=== PATIENT | male | born 1950 | race Caucasian/White ===

== ENCOUNTER → 2022-08-13 13:03 | Outpatient (BNVA) | payer MEDICARE, SELFPAY | PROVIDERS: PCP Internal Medicine Medical Oncology; Visit Provider Physician Assistant | DX: M54.40 Lumbago with sciatica, unspecified side (principal) | CPT/HCPCS: 99212 ==

== ENCOUNTER 2022-10-04 10:34 | Outpatient (REF) | payer MEDICARE, SELFPAY ==
--- NOTE | ~2022-10-04 | MR_ITS ---
EXAMINATION: MR LUMBAR SPINE WITHOUT AND WITH CONTRAST CLINICAL INFORMATION: 72-year-old with lumbago, with sciatica, unspecified laterality. COMPARISON: None available. TECHNIQUE: Multiplanar multisequence MR imaging of the lumbar spine was done prior to and following the administration of 7 mL of Gadavist. FINDINGS: Coronal Alignment: Mild lower lumbar levocurvature, convex to the left at L3-L4 with slight mhgr-wc-fvsei lateral listhesis at L2-L3. Sagittal Alignment: 2 mm of grade 1 degenerative spondylolisthesis at L4-L5 without spondylolysis. 2-3 mm of retrolisthesis asymmetric to the right at L2-L3. Lumbosacral Junction: Normal. There are 5 lnz-tmn-gniwwkx lumbar-type vertebral bodies. Vertebral Bodies: Slight chronic loss of height asymmetric to the left at L2. Otherwise, vertebral body heights are well maintained. Disc Spaces and Endplates: Ennnyqsh-bu-cfncmq disc space height loss asymmetric to the left at L5-S1 with intradiscal degenerative signal changes and mild spondylosis. Moderate disc space height loss with disc desiccation, Schmorl's nodes and spondylosis at L2-L3 and minor degrees of spondylosis and disc desiccation at L1-L2, L3-L4 and L4-L5. Spinal Canal: No abnormal developmental findings. Bone Marrow: Type I degenerative marrow signal changes seen along the endplates at L5-S1 with associated marrow enhancement and to a lesser degree at L2-L3, with type II marrow signal changes at L2-L3 and L5-S1. There is partially imaged marrow signal alteration in the sacral ala bilaterally which could be artifactual; however, if clinically warranted, MRI of the sacrum without and with contrast may be of additional value to further assess this to exclude insufficiency fracture or other abnormality. There is also somewhat heterogeneous marrow signal intensity seen in the background of diffusely which is nonspecific. Conus Medullaris: Terminates at T12. Morphology and signal is normal. No abnormal enhancement. Intradural Nerve Roots: Within normal limits. No abnormal intradural enhancement. L5-S1: Concentric disc bulging is noted with superimposed broad-based uinoeus-zy-qsyl subarticular extruded disc herniation with slight caudal migration in the subarticular zone impinging on the left S1 nerve root. There is slight flattening of the ventral thecal sac centrally and asymmetric to the left associated with this. There is mild facet arthrosis on the left with mild left subarticular recess narrowing without significant central canal stenosis. There is vnxzncvk-hn-irecto left-sided neural foraminal stenosis with impingement on the exiting left L5 nerve root. L4-L5: Slight unroofing of the posterior disc margin is noted consistent with mild grade 1 degenerative spondylolisthesis, with superimposed concentric disc bulging, with posterolateral annular fissuring on the left. There is flattening of the ventral dural sac with a prominent dorsal epidural fat pad and there is moderate bilateral facet arthropathy, with bilateral facet joint effusions which are noted to enhance with some periarticular edema and enhancement suggesting inflammatory changes at both facet joints. There is mild central spinal canal stenosis and there is qqhajnha-bp-oumduq right and mild left subarticular recess stenosis with encroachment on the traversing right L5 nerve root. Minor foraminal narrowing is noted on the right without exiting neural impingement. L3-L4: There is diffuse disc bulging with mild flattening of the ventral dural sac with a prominent dorsal fat pad. There is yigo-wm-tcckcpee bilateral facet arthropathy, right more than left, with a right-sided facet joint effusion with associated intraventricular and periarticular enhancement bilaterally consistent with facet joint inflammatory changes. There is borderline central canal narrowing, with moderate right and mild left-sided subarticular recess stenosis and cmnm-vk-ahornbdb right-sided neural foraminal stenosis without definite neural impingement. L2-L3: Slight retrolisthesis asymmetric to the right with posterolateral disc osteophyte complex and bilateral foraminal/extraforaminal disc protrusions with left posterolateral annular fissuring. Mild flattening of the ventral dural sac is noted with mild facet arthropathy bilaterally. No significant central spinal canal stenosis. There is crowding of the right subarticular zone with encroachment on the intradural portion of the traversing right L3 nerve root and mild bilateral neural foraminal stenosis. L1-L2: Minor annular bulging with trace central annular fissuring with slight flattening of the ventral dural sac with no significant canal stenosis. There is minor facet arthropathy on the right without significant neural foraminal stenosis. T12-L1: Small central extruded disc herniation with caudal migration down to the level of midbody L1 with slight indentation of the ventral thecal sac without canal stenosis. No significant facet arthrosis or neural foraminal stenosis. Paravertebral and Included Extraspinal Soft Tissues: Small foci of susceptibility artifact are noted in the soft tissues posterior to the L4-L5 level of indeterminate significance. There is some associated faintly enhancing soft tissue stranding in this region along the posterior aspect of the L4-L5 interspinous ligament. Correlate with any previous surgical procedures. MR/MR lumbar spine wo/w con IMPRESSION: 1. Mild lower lumbar levoscoliosis, with mild grade 1 degenerative spondylolisthesis at L4-L5 and mild retrolisthesis at L2-L3. 2. Multilevel DDD and spondylosis, with multilevel disc bulging, disc osteophyte complexes and disc herniations as described above with left subarticular extruded disc herniation at L5-S1 impinging on the left S1 nerve root. 3. Multilevel bilateral facet arthropathy, with inflammatory changes at both L4-L5 and L3-L4 with facet joint effusions and enhancement at these levels suggesting active inflammatory changes. 4. Mild central spinal canal stenosis at L4-L5 and multilevel subarticular recess stenosis, most apparent on the right at L4-L5 and L3-L4 and on the right at L2-L3. 5. Multilevel bilateral neural foraminal stenosis, most apparent on the left at L5-S1 with left L5 nerve root impingement. 6. Partially imaged marrow signal alteration in the sacral ala bilaterally which could be artifactual; however, if clinically warranted, MRI of the sacrum without and with contrast may be of additional value to further assess this for possible sacral insufficiency fracture or other abnormality. 7. Susceptibility artifact with soft tissue signal changes posterior to the L4-L5 level. Correlate for any history of recent surgical procedures at this level to account for this.
== END 2022-10-04 10:35 | disposition home or self-care (01) ==
LOC: HO.MRI 10:34
PROVIDERS: PCP Internal Medicine; Visit Provider Physician Assistant
DX: M54.40 Lumbago with sciatica, unspecified side (principal)
CPT/HCPCS: 72158; A9585

== ENCOUNTER 2022-12-10 14:08 | Outpatient (AMB) | payer MEDICARE, SELFPAY ==
--- NOTE | 2022-12-10 14:19 | A.SPINEOV_ITS ---
Intake Intake Visit Reasons: follow up Intake Note: Mr. Crowley is here for a follow up w/new MRI/brought disc. Skein Inspector Required: No Assessment & Plan Assessment & Plan (1) Back pain of lumbar region with sciatica: Code(s): M54.40 - Lumbago with sciatica, unspecified side Plan Mr. Crowley is here for F/U regarding our last visit where he expressed concerns regarding a chronic problem with R hand / arm, and previously reported sub- optimal relief s/p his left L5 foraminotomy in February of last year. In regards to his R arm weakness, we had discussed having him bring in his most recent Cervical MRI to review for a possible etiology of his symptoms. We reviewed his MRI from 2019 and noted moderate right-sided foraminal stenosis at C7, with rather diffuse mild/moderate cervical spinal stenosis. He reported that the neurosurgeon who we spoke to after this cervical MRI in 2019 recommended he have cervical spinal surgery but does not remember the name the surgery. In regards to his L leg pain that radiates alongside his left back when walking, we reviewed the most recent MRI which showed no significant changes from his previous MRI. Thankfully the patient reports that his left-sided radicular symptoms have completely subsided, and stated that he wants to thank Dr. Martínez personally for the complete relief of his low back and leg symptoms. He was initially concerned after his last visit but states over the last few months his symptoms have subsided. To be clear today the patient states that is most predominant symptom is his right arm and hand weakness. On physical exam the patient has noted atrophy in his right hand, particularly in his interossei muscles, and noted atrophy of the right arm compared to the left arm. He has 4/5 strength in his right arm/hand and 5/5 strength in his left arm/hand. (-) Alvarez's bilaterally. After reviewing this patient case with SARAH David examining the patient alongside him we decided that it would be best for him to monitor his right hand/arm symptoms over the course the next 6 months and have the patient reach back out to us and let us know how his symptoms progress. If his symptoms significantly worsen we would like to reorder an MRI of the cervical spine and can discuss potential surgical interventions after the MRI is complete. Total amount of time spent in this visit was 45 minutes in discussion of symptoms, MRI imaging results and subsequent plan of care. This plan was discussed with SARAH David and Dr. Martínez. Alec Martínez MD,PhD [facility] Coding Level of Care Code Tele Est Pt Level 4 (23474) Diagnoses Back pain of lumbar region with sciatica M54.40
== END 2022-12-10 15:34 | disposition home or self-care (01) ==
PROVIDERS: PCP Internal Medicine; Visit Provider Physician Assistant
DX: M54.40 Lumbago with sciatica, unspecified side (principal)
CPT/HCPCS: 99215

== ENCOUNTER → 2022-12-10 14:08 | Outpatient (BNVA) | payer MEDICARE, SELFPAY | PROVIDERS: PCP Internal Medicine; Visit Provider Physician Assistant | DX: M54.40 Lumbago with sciatica, unspecified side (principal) | CPT/HCPCS: 99212 ==

== ENCOUNTER → 2023-05-03 14:13 | Outpatient (BNV) | payer MEDICARE, SELFPAY | PROVIDERS: Visit Provider Internal Medicine Cardiovascular Disease | DX: R00.1 Bradycardia, unspecified (principal); R94.31 Abnormal electrocardiogram [ECG] [EKG] | CPT/HCPCS: 93010 ==

== ENCOUNTER 2023-05-05 09:26 | Day surgery (SDC) | payer MEDICARE, SELFPAY ==
--- NOTE | 2023-05-03 | ECG_ITS ---
Test Reason : preop Blood Pressure : / mmHG Vent. Rate : 057 BPM Atrial Rate : 057 BPM P-R Int : 150 ms QRS Dur : 086 ms QT Int : 416 ms P-R-T Axes : 079 063 057 degrees QTc Int : 404 ms Sinus bradycardia Possible Left atrial enlargement Borderline ECG No previous ECGs available Referred By: Shiloh Kumar Electronically Signed By:DOTTY MCKEON MD
[2023-05-03 13:29] VITALS: BP 129/91; PULSE 56; RESP 16; O2SAT 98; BMI 23.8
--- NOTE | 2023-05-03 13:55 | HO.ANESPROP2 ---
Documented by User: Shiloh Kumar NP 05/04/23 08:26 HPI - Anesthesia Eval Consult details Narrative: 72yo M for C6-7 Ant Cerv Discectomy w/ fusion No recent illness No CP/SOB with walking, grocery shopping Benign tremor. Propranolol BID GERD. Diet controlled. Occassional PMFSH Active Problems Active Problems: All Active Problems (Updated 05/03/23 @ 13:25 by Hannah Bates, [place]) Back pain of lumbar region with sciatica (Acute) Past Medical History Medical History (Updated 05/05/23 @ 12:05 by SARAH Voss) Prostate cancer Low back pain GERD (gastroesophageal reflux disease) Tremor Numbness and tingling in right hand ADHD Elevated cholesterol HTN (hypertension) Family History Family history of problems with anesthesia: No Surgical History Surgical History Hx of decompression of ulnar nerve Hx of arthroscopy of right knee Hx of tonsillectomy Hx of colonoscopy History of carpal tunnel release Hx of decompressive lumbar laminectomy History of Problems with Anesthesia: No Social History Social History Are you a primary youth care professional to a significant other at home: No Do you presently have visiting nurse or other home services: No Comment: aware of trip hazard Patient Tobacco Use Status: Never used Tobacco Use of substances other than those prescribed or required for medical reasons: Yes Substance Use Frequency: Occasionally Have you been hit, kicked, punched, or otherwise hurt by someone within the past year? If so, by whom?: No Are you DNR?: No Advance Directives: No Advance Directives Information Provided: Yes Advance Directives on File: No Recently lost weight without trying: No Nutrition Risks: No Nutritional Risk Poor oral hygiene: No Meds Allergies Allergy/AdvReac Type Severity Reaction Status Date / Time No Known Allergies Allergy Verified 05/05/23 09:44 Home Medications Medication Instructions Recorded Confirmed Last Taken Type citalopram 20 mg tablet 20 mg PO DAILY 05/02/23 05/02/23 05/05/23 History propranolol 20 mg tablet 60 mg PO BID 05/02/23 05/02/23 Unknown History rosuvastatin 40 mg tablet 40 mg PO DAILY 05/02/23 05/02/23 Unknown History tamsulosin 0.4 mg capsule 0.4 mg PO DAILY 05/02/23 05/02/23 Unknown History trazodone 100 mg tablet 100 mg PO BEDTIME 05/02/23 05/02/23 Unknown History docusate sodium 100 mg capsule 100 mg PO DAILY 05/03/23 05/03/23 Unknown History methylphenidate HCl 30 mg biphasic 30 mg PO QAM 05/03/23 05/03/23 Unknown History 30-70 capsule,extended release Exam Height,Weight and Vital Signs: Height 5 ft 7 in Weight 68.946 kg Last Vital Signs Pulse 56 05/03/23 13:29 Resp 16 05/03/23 13:29 BP 129/91 H 05/03/23 13:29 Pulse Ox 98 05/03/23 13:29 O2 Del Method Room Air 05/03/23 13:29 Pertinent Lab Results Pertinent Lab Results: Lab Results 05/03/23 Range/Units 14:28 WBC 6.6 (4.8-10.8) X10*3/uL RBC 5.30 (4.60-5.80) X10*6/uL Hgb 15.5 (14.0-18.0) g/dl Hct 47.8 (42.0-52.0) % MCV 90.2 (80.0-98.0) fL MCH 29.2 (27.0-33.0) pg MCHC 32.4 (31.0-36.0) g/dl RDW 13.4 (11.0-16.0) % Plt Count 192 (160-400) X10*3/uL MPV 9.6 (9.4-12.4) fL Absolute Nucleated RBC 0.000 (0.0-0.012) X10*3/uL Nucleated RBC % (auto) 0.0 (0.0-0.2) /100WBC Sodium 141 (135-145) mmol/L Potassium 4.5 (3.3-5.1) mmol/L Chloride 105 (96-108) mmol/L Carbon Dioxide 30 H (22-29) mmol/L Anion Gap 11 L (12-20) BUN 18 H (9-16) mg/dL Creatinine 1.00 (0.5-1.4) mg/dL Estim Creat Clear Calc 62.4 Estimated GFR > 60 Random Glucose 94 (60-115) mg/dL Calcium 9.5 (8.4-10.2) mg/dL Narrative Narrative: EKG 04/2023 Vent. Rate : 057 BPM Atrial Rate : 057 BPM P-R Int : 150 ms QRS Dur : 086 ms QT Int : 416 ms P-R-T Axes : 079 063 057 degrees QTc Int : 404 ms Sinus bradycardia Possible Left atrial enlargement Borderline ECG No previous ECGs available Airway Mallampati Class: II TM Dist: >3cm Neck ROM: Limited Loose/Missing/Broken Teeth: Yes (Crowned molars) Heart: RRR Lungs: CTAB Assessment and Plan Assessment Anesthesia Assessment: Anesthesia Plan Discussed and PAT Visit Final Anesthetic Review Family History of Problems with Anesthesia: No History of Problems with Anesthesia: No Documented by User: Alexi Moore MD 05/05/23 14:02 [facility] Past Medical History Medical History (Updated 05/05/23 @ 12:05 by SARAH Voss) Prostate cancer Low back pain GERD (gastroesophageal reflux disease) Tremor Numbness and tingling in right hand ADHD Elevated cholesterol HTN (hypertension) Surgical History Surgical History Hx of decompression of ulnar nerve Hx of arthroscopy of right knee Hx of tonsillectomy Hx of colonoscopy History of carpal tunnel release Hx of decompressive lumbar laminectomy Social History Social History Are you a primary youth care professional to a significant other at home: No Do you presently have visiting nurse or other home services: No Comment: aware of trip hazard Patient Tobacco Use Status: Never used Tobacco Use of substances other than those prescribed or required for medical reasons: Yes Substance Use Frequency: Occasionally Have you been hit, kicked, punched, or otherwise hurt by someone within the past year? If so, by whom?: No Are you DNR?: No Advance Directives: No Advance Directives Information Provided: Yes Advance Directives on File: No Recently lost weight without trying: No Nutrition Risks: No Nutritional Risk Poor oral hygiene: No Meds Allergies Allergy/AdvReac Type Severity Reaction Status Date / Time No Known Allergies Allergy Verified 05/05/23 09:44 Home Medications Medication Instructions Recorded Confirmed Last Taken Type citalopram 20 mg tablet 20 mg PO DAILY 05/02/23 05/02/23 05/05/23 History propranolol 20 mg tablet 60 mg PO BID 05/02/23 05/02/23 Unknown History rosuvastatin 40 mg tablet 40 mg PO DAILY 05/02/23 05/02/23 Unknown History tamsulosin 0.4 mg capsule 0.4 mg PO DAILY 05/02/23 05/02/23 Unknown History trazodone 100 mg tablet 100 mg PO BEDTIME 05/02/23 05/02/23 Unknown History docusate sodium 100 mg capsule 100 mg PO DAILY 05/03/23 05/03/23 Unknown History methylphenidate HCl 30 mg biphasic 30 mg PO QAM 05/03/23 05/03/23 Unknown History 30-70 capsule,extended release Assessment and Plan Final Anesthetic Review NPO: Yes ASA Class: III Final Preanesthetic Review: No Changes in Pt Med Stat, Meds/Allgs Chart Reviewed, Consent Obtained/Reviewed and Anes Risks/Benef Reviewed Patient Risk: Intermediate Procedure Risk: Intermediate Anesthetic Plan Anesthetic Plan: GA Disposition: Standard PACU
[2023-05-03 15:26] LABS: Hematocrit 47.8 % (42.0-52.0); Hemoglobin 15.5 g/dl (14.0-18.0); Mean Corpuscular HGB Conc 32.4 g/dl (31.0-36.0); Mean Corpuscular Hemoglobin 29.2 pg (27.0-33.0); Mean Corpuscular Volume 90.2 fL (80.0-98.0); Mean Platelet Volume 9.6 fL (9.4-12.4); Platelet Count 192 X10*3/uL (160-400); Red Cell Distribution Width 13.4 % (11.0-16.0); White Blood Count 6.6 X10*3/uL (4.8-10.8)
[2023-05-03 15:57] LABS: Anion Gap 11 (12-20); Blood Urea Nitrogen 18 mg/dL (9-16); Calcium 9.5 mg/dL (8.4-10.2); Carbon Dioxide 30 mmol/L (22-29); Chloride 105 mmol/L (96-108); Creatinine Clr Calc Pharmacy 62.4; Estimated Glomerular Filt Rate > 60; Glucose Random 94 mg/dL (60-115); Potassium 4.5 mmol/L (3.3-5.1); Sodium 141 mmol/L (135-145)
[2023-05-05] VITALS (14 sets, daily range): BP systolic 117–155; BP diastolic 72–91; PULSE 66–75; RESP 12–18; TEMP 36.3–36.4; O2SAT 95–100; BMI 24.1
--- NOTE | ~2023-05-05 | FL_ITS ---
EXAMINATION: XR FLUOROSCOPY WITH IMAGES CLINICAL INFORMATION: ACDF COMPARISON: None available. TECHNIQUE: Fluoroscopy Supervised By: Dr. Luis Armando Martínez Fluoroscopy Time: Reported as 0 minutes by imaging equipment. Cumulative Dose: 0.803 mGy. DAP: 0.0109 Gycm2. Images: 2. FINDINGS: Fluoroscopic imaging was utilized for procedure. 2 images are saved and available for review. These show presence of anterior cervical fusion hardware at C6-C7 and overlying drains. FL/FL guidance in OR IMPRESSION: Imaging guidance for procedure. For further detail regarding findings and procedure please refer to the operative report.
--- NOTE | 2023-05-05 09:28 | MHC.SHP ---
Pre-Procedural Eval Section A Date of Service: 05/05/23 The patient is an INPATIENT: No Changes since office visit: No Cold of Flu in the past 2 weeks, No New Medical Problems, No Changes in Medication and No Patient answered all questions The History & Physical has been completed within 30 days and I have reviewed it.: No Section B Chief Complaint: Spinal stenosis, cervical region Allergies: Allergies Allergy/AdvReac Type Severity Reaction Status Date / Time No Known Allergies Allergy Verified 04/27/23 15:06 Review of Systems Sugical H&P ROS: Negative: Constitution, Cardiovascular, Respiratory, Neurological, Psychiatric, Hem-Onc, Allergic/Immunologic, Gastrointestinal, Genitourinary, Musculoskeletal, Integumentary, Endocrine and Eyes/Ears/Nose/Throat Exam Surgical H&P Exam: Not Evaluated: HEENT, Not Evaluated: Heart, Not Evaluated: Lungs, Not Evaluated: Extremities, Not Evaluated: Abdomen, Not Evaluated: Skin and Not Evaluated: Neurological Plan Diagnosis/Plan: Unchanged C6-7 Anterior Cervical Diskectomy and fusion Time Spent With Patient Time: Total time managing care of this patient today __10__ minutes.
[2023-05-05] MEDS: Lactated Ringers 1,000 ML 100 ML IVCONT (09:50)
[2023-05-05] MEDS: methocarbamoL 750 MG TABLET PO (10:14)
[2023-05-05] MEDS: Gabapentin 300 MG CAPSULE PO (10:14)
--- NOTE | 2023-05-05 11:55 | W.PM.OPN ---
Operative Note Operative Note Date of Service: 05/05/23 Narrative: Preoperative Diagnosis: Cervical myelopathy due to spinal cord compression C6-7 Procedure: C6-C7 Anterior discectomy, arthrodesis and implantation cage ; C6-C7 anterior instrumentation ; local autograft; microscope Informed Consent was obtained for this operation. I have explained the nature, purpose and benefits of the operation. I have discussed the risks and benefit of the operation including possible complications or adverse events with patient/family. Alternative(s) were discussed with the patient with their relative benefits and risks as well as the consequences of not accepting the operation were included in obtaining consent. Surgeon: ISAURA RODRIGUES MD, PHD Procedure Assisted By: ronaldo King Description of Procedure: This 72-year-old male presents with progressive right hand clumsiness and weakness. New MRI shows progressive C6-7 spinal cord compression with myelomalacia and a stable right C8 foraminal stenosis. Was offered an anterior diskectomy fusion C6-7 to decompress the spinal cord. The procedure complications were explained. The patient was consented. The patient was brought to the operating room and endotracheally intubated. The patient was put in supine position with slight extension of the neck. Prep and drape was done followed by timeout. A mid cervical incision was made followed by opening of the platysma. The prevertebral fascia was reached following the natural planes while the physician assistant professor surgical technology provided manual retraction. The prevertebral fascia was opened to expose the disc space. A spinal needle was placed in the disk space to confirm the correct level with xray. The longus colli muscles were released bilaterally and a self retaining retractor was inserted. Two Burwell pins were placed in the C6 and C7 vertebral bodies and distraction was give over the interspace. The discectomy was completed toward the posterior annulus of the disc. The microscope was brought in. The remainder of the discectomy was completed. The posterior ligament was opened and resected to expose the underlying dura. Severe spinal cord compression was present eccentric from the right side into the foramen. The large osteophytes were resected from the body of C6 and C7 to decompress the spinal cord and saved for autograft. Bilateral foraminotomies were done. The endplates were prepared after which a 6 mm cage filled with autograft was inserted into the disc space. A separate attached plate was locked down with 2 x 14 mm screws as anterior instrumentation. Final x-rays in AP and lateral projection showed a satisfactory position of the implant. The physician assistant professor surgical technology took over. The Burwell pin was removed. Hemostasis was done. He closed the incision in 2 layers with a 3-0 Vicryl. Steri-Strips used to approximate incision. An OpSite with Tegaderm was used to cover the incision. All sponge and needle counts were correct. Patient was extubated and transported in stable is to recovery room. Anesthesia: General Estimated Blood Loss (ml): 15 mL Duration of Surgery: 60 minutes Postoperative Plan: Discharge home Complications: None
--- NOTE | 2023-05-05 12:05 | PM.DS ---
DS: Providers Provider Date of Service: 05/05/23 Date of discharge: 05/05/23 Primary care physician: Yusef Hugo NP Admitting clinician: Luis Armando Martínez DS: Diagnosis Discharge Diagnosis (1) Cervical myelopathy: Status: Acute DS: Summary Time Attestation Discharge coordination time: Less than 30 minutes Quality: Safe Use of Opioids Does Pt have an Active Cancer Diagnosis on the Problem List?: No Quality: Stroke Does the patient have a stroke diagnosis?: No Physical Exam Vital Signs: Vital Signs: Last Vital Signs Temp 97.6 F 05/05/23 09:59 Pulse 73 05/05/23 09:59 Resp 18 05/05/23 09:59 BP 155/91 H 05/05/23 09:59 Pulse Ox 97 05/05/23 09:59 O2 Del Method Room Air 05/05/23 09:59 BMI result Body Mass Index 24.1 Discharge Plan Discharge Patient Disposition: Home, Self-Care Referrals: Yusef Hugo NP [Primary Care Provider] - 1 Week Discharge Medications: New oxycodone 5 mg tablet 5 mg PO Q4H PRN (Reason: pain) Qty: 20 0RF Rx Instructions: Partial Fill upon patient request. Continued citalopram 20 mg tablet 20 mg PO DAILY tamsulosin 0.4 mg capsule 0.4 mg PO DAILY trazodone 100 mg tablet 100 mg PO BEDTIME propranolol 20 mg tablet 60 mg PO BID rosuvastatin 40 mg tablet 40 mg PO DAILY methylphenidate HCl 30 mg capsule, ER biphasic 30-70 30 mg PO QAM docusate sodium 100 mg Capsule 100 mg PO DAILY Discharge Orders: Discharge Order (Routine); Ordered 05/05/23 Ordered By: Kyle David Diet: Advance to usual diet Activity on Discharge: As tolerated Activity Restrictions/Additional Instructions: After your spinal surgery we ask you to observe the following restrictions/guidelines: Activity: It is normal to feel some discomfort as you increase your activity, but that will improve with time. We ask you avoid heavy lifting or acitivities that cause pain. As a general rule, 8lbs is a safe limit for lifting right after surgery. Walk as much as you feel comfortable but not to exhaustion. You will feel extra tired the first few days after surgery. Stay well hydrated. It is OK to walk up and down stairs You may return to driving when you are off narcotics (such as vicodin, oxycodone, dilaudid, etc), and you are back to normal functional capacity. If you have any concerns please check with office before driving. Return to work is specific to each patient and each surgery, so please speak with your doctor/PA at first follow up. Please bring paperwork such as FMLA at that time if you need it filled out. Medications: For optimum pain control, it is best to start with a combination of 500 mg of Tylenol every 4 hours with 600 mg of Motrin every 8 hours, and use narcotics as needed in between for breakthrough pain. We will give you a short supply of narcotics after surgery (usually one weeks worth). If you need more please call the office but do not use more than prescribed. You will need to give our office 48 hours notice if you need narcotics refilled and we do not fill narcotics on weekends or evenings. If you are on a narcotic, it is a good idea to take a stool softener such as colace or senna to avoid constipation If you take blood thinner such as aspirin, Plavix, Coumadin, Effient, Eliquis etc for conditions such as Afib, DVT, Pulmonary embolus, coronary disease, stents etc please speak with your surgeon about specific details as to when you can resume these medications. You can resume NSAIDs on post op day 1 (eg: Motrin, Naproxen, etc). Follow up: Please call the office, , after surgery to arrange a 3 week follow up for wound check. Wound Care: You may remove your dressing on the first day after surgery. ?You may ?leave open to air. Please do not remove the steri strips underneath. they will fall off on their own in one week. IT IS NORMAL FOR THE WOUND TO OOZE OR BE BLOODY FOR A FEW DAYS AFTER SURGERY. ?IF THIS HAPPENS JUST PLACE NEW DRESSING OVER IT TO AVOID STAINING CLOTHES. You may shower on post op day # 1 We ask that you do not let the water soak the wound. If it does get wet, just towel dry lightly. Please do not scrub your incision or place any type of chemical/ointment on the wound. No tub baths, pools or jacuzzis for one month. If you have any leaking or redness from your wound, or fevers, please call office
[2023-05-05] MEDS: droPERidol 5 MG/2 ML VIAL 0.625 MG IVPUSH (14:04)
== END 2023-05-05 15:37 | disposition home or self-care (01) ==
PROVIDERS: Nurse Practitioner; PCP Nurse Practitioner Family; Visit Provider Neurological Surgery
PROC: (CPT 22551; principal; 2023-05-05 11:30)
DX: M48.02 Spinal stenosis, cervical region (principal); M50.00 Cervical disc disorder with myelopathy, unspecified cervical region; G95.9 Disease of spinal cord, unspecified; I10 Essential (primary) hypertension; R20.0 Anesthesia of skin; R20.2 Paresthesia of skin; E78.00 Pure hypercholesterolemia, unspecified; R25.1 Tremor, unspecified; K21.9 Gastro-esophageal reflux disease without esophagitis; C61 Malignant neoplasm of prostate; F90.9 Attention-deficit hyperactivity disorder, unspecified type; Z79.899 Other long term (current) drug therapy; Z98.890 Other specified postprocedural states
CPT/HCPCS: 22551; 22853; 20936; 22845; 36415; 80048; 85027; 93005; C1713; J0131; J0690; J1790; J2371; J2405; J2704; J3010

== ENCOUNTER → 2023-05-05 09:26 | Outpatient (BNV) | payer MEDICARE, SELFPAY | PROVIDERS: PCP Nurse Practitioner Family; Visit Provider Neurological Surgery | DX: M50.023 Cervical disc disorder at C6-C7 level with myelopathy (principal); G95.9 Disease of spinal cord, unspecified | CPT/HCPCS: 20936; 22551; 22845; 22853; 99499 ==

== ENCOUNTER 2023-05-26 09:32 | Outpatient (AMB) | payer MEDICARE, SELFPAY ==
--- NOTE | 2023-05-26 09:34 | A.SPINEOV_ITS ---
Intake Intake Visit Reasons: 1st post op Intake Note: Mr. Crowley is here for his 1st post-op visit. Meat Carver Required: No Allergies No Known Allergies Allergy (Verified 05/05/23 09:44) Assessment & Plan Assessment & Plan (1) Cervical myelopathy: Code(s): G95.9 - Disease of spinal cord, unspecified Plan Procedure: C6-7 ACDF Rashel comes in today for his 1st postoperative visit. He states that he continues to have some posterior neck pain and discomfort in his shoulders, alongside prolonged weakness in his right hand which was his baseline prior to surgery. He states that he did have some modest improvement in the first few days post-operatively, but feels he has since had return of symptoms accompanied by persistent posterior neck pain. He was encouarged that this is likely due to an acute inflammatory response post-operatively, and will resolve on its own. We did discuss realistic expectations for his hand weakness, as this is very likely related to permanent orthopedic mechanic nerve damage. He reported he will be down in [place] for the rest of the winter, and asked for a referral to physical therapy so so he could specifically see a hand therapist down in [place]. No new neurological deficits. Patient is able to ambulate well, rises from a seated position without difficulty. Incision site is closed, well healing, with no signs of drainage. The patient still had Steri-Strips over the incision site which were removed. We will follow-up with the patient in 6 weeks for his 2nd postoperative visit. At that time we will get x-rays to review with the patient. I gave the patient a referral for physical therapy to take with him to [place] specifically for therapy on his right hand, not for neck / spine exercises. Alec Martínez MD,PhD [facility] Orders: Orders PT Evaluation and Treatment Today G95.9 - Disease of spinal cord, unspecified Coding Level of Care Code Global (45469) Diagnoses Cervical myelopathy G95.9
== END 2023-05-26 10:02 | disposition home or self-care (01) ==
PROVIDERS: PCP Nurse Practitioner Family; Visit Provider Physician Assistant
DX: G95.9 Disease of spinal cord, unspecified (principal)
CPT/HCPCS: 99024

== ENCOUNTER → 2023-05-26 09:32 | Outpatient (BNVA) | payer MEDICARE, SELFPAY | PROVIDERS: PCP Nurse Practitioner Family; Visit Provider Physician Assistant | DX: Z48.89 Encounter for other specified surgical aftercare (principal) | CPT/HCPCS: 99212 ==

== ENCOUNTER 2023-08-02 11:53 | Outpatient (REF) | payer MEDICARE, SELFPAY ==
--- NOTE | ~2023-08-02 | XR_ITS ---
EXAMINATION: XR CERVICAL SPINE CLINICAL INFORMATION: Disease or spinal cord unspecified. COMPARISON: Fluoroscopic guidance in OR of 05/05/2023. TECHNIQUE: 4 views of the cervical spine inclusive of flexion and extension views. FINDINGS: Advanced multilevel cervical spondylosis with loss of disc space height at C3-C4, C4-C5, C5-C6, and C7-T1. Grade 1 anterolisthesis of C7 on T1. Rightward curvature of the partially imaged upper thoracic spine with degenerative changes. Redemonstration of anterior cervical fusion hardware at C6-C7. Hardware appears intact. Please note that a radiopaque arrow placed by technologist obscures posterior inferior aspect of C2 vertebral body on lateral view, limiting evaluation. Repeat view should be obtained at no charge to the patient, and when this image is obtained, an addendum will be dictated. XR/XR cervical spine 4V IMPRESSION: 1. Advanced multilevel cervical spondylosis. 2. Anterior cervical fusion hardware at C6-C7. 3. Please note that a radiopaque arrow placed by technologist obscures posterior inferior aspect of C2 vertebral body on lateral view, limiting evaluation. Repeat view should be obtained at no charge to the patient, and when this image is obtained, an addendum will be dictated.
== END 2023-08-02 11:54 | disposition home or self-care (01) ==
LOC: HO.HOSX 11:53
PROVIDERS: Visit Provider Physician Assistant
DX: G95.9 Disease of spinal cord, unspecified (principal); Z98.890 Other specified postprocedural states
CPT/HCPCS: 72050; 99212

== ENCOUNTER 2023-08-02 13:55 | Outpatient (AMB) | payer MEDICARE, SELFPAY ==
--- NOTE | 2023-08-02 14:04 | A.SPINEOV_ITS ---
Intake Intake Visit Reasons: late 2nd post op with xrays Intake Note: Mr. Crowley is here today for 2nd post-op with xrays Log Turner Required: No Allergies No Known Allergies Allergy (Verified 08/02/23 14:22) Assessment & Plan Assessment & Plan (1) H/O cervical spine surgery: Code(s): Z98.890 - Other specified postprocedural states Plan Procedure: C6-7 ACDF Rashel patient comes in today for a subsequent follow-up visit after having a C6- 7 ACDF completed by our service. He most recently was down in [place] for the winter and had physical therapy completed on his right hand, in an effort to free strength in this area after significant muscle wasting. He reports that the tremor in his hand than the weakness in his hand are essentially the same as they were prior to surgery. No significant shooting pains down either upper extremity reported. His X-ray imaging looks great, and shows no changes from those taken during flouroscopy. We reviewed the goals of surgery which were to halt disease progress. I answered all of his questions to the best of my ability. No new neurological deficits. Patient is able to ambulate well, rises from a seated position without difficulty. Incision sites are closed, well healing, with no signs of drainage. I encouraged her off that symptom resolution healing can occur all the way up to the year out from surgery. There is no need for continued routine follow up with Rashel. He was informed that he may see us again in the future if he deve lops new neurological symptoms, or would like to follow-up to see how he has healed. Alec Martínez MD,PhD [facility] Coding Level of Care Code Global (58645) Diagnoses H/O cervical spine surgery Z98.890
== END 2023-08-02 14:57 | disposition home or self-care (01) ==
PROVIDERS: PCP Nurse Practitioner Family; Visit Provider Physician Assistant
DX: Z98.890 Other specified postprocedural states (principal)
CPT/HCPCS: 99024